=== PATIENT | female | born 1940 | race African-American/Black ===

== ENCOUNTER 2024-08-07 09:15 | Inpatient (IN) | payer OTHER, MEDICARE ==
[~2024-08-07] VITALS: Ht 198.1 cm; Wt 67.1 kg
[2024-08-07] MEDS ORDERED: MORPHINE SULFATE 4 MG/ML INJ (FOR IV/IM USE) IV ONE (10:00)
[2024-08-07] MEDS: SODIUM CHLORIDE 0.9% 1000ML BAG (SEPSIS BOLUS) IV ONE (10:07)
[2024-08-07] MEDS: VANCOMYCIN 1G PREMIX 200 ML IV ONE (10:11)
[2024-08-07] MEDS: PIPERACILLIN/TAZO 3.375G/50ML 50 ML IV ONE (10:11)
[2024-08-07 10:32] LABS: BASOPHILS % 0.1 % (0.0-2.0); HEMATOCRIT. 31.2 % (36.0-48.0); HEMOGLOBIN. 9.9 g/dL (12.0-16.0); LYMPHOCYTES % 9.8 % (20.0-50.0); MEAN CORPUSCULAR HEMOGLOBIN 29.6 pg (28.0-32.0); MEAN CORPUSCULAR HGB CONC 31.8 g/dL (31.0-37.0); MEAN CORPUSCULAR VOLUME 93.3 fL (81.0-99.0); MEAN PLATELET VOLUME 8.2 fl (7.4-10.4); MONOCYTES % 1.2 % (2.0-8.0); NEUTROPHILS % 88.9 % (40.0-76.0); PLATELET 157 x1000/uL (130-400); RED BLOOD CELL COUNT 3.34 mill/uL (4.2-5.4); RED CELL DISTRIBUTION WIDTH 16.3 % (11.6-14.6); WHITE BLOOD COUNT 6.2 x1000/uL (4.5-11.0)
[2024-08-07 10:50] LABS: LACTIC ACID 2.5 mmol/L (0.4-2.0)
[2024-08-07] MEDS: MORPHINE SULFATE 4 MG/ML INJ (FOR IV/IM USE) IV NR (11:40)
[2024-08-07 12:46] LABS: CHLORIDE 105 mEq/L (98-107); POTASSIUM 4.4 mEq/L (3.5-5.1); SODIUM 139 mEq/L (136-145)
[2024-08-07 12:47] LABS: CALCIUM 9.2 mg/dL (8.7-10.4); CARBON DIOXIDE 21 mEq/L (21-32)
[2024-08-07 12:52] LABS: CREATININE 0.8 mg/dL (0.6-1.0); GLUCOSE 133 mg/dL (70-105); UREA NITROGEN BLOOD 13 mg/dL (9-23)
[2024-08-07 12:53] LABS: TROPONIN I HIGH SENSITIVITY 6 ng/L (3.0-34)
[2024-08-07] MEDS ORDERED: ACETAMINOPHEN 325MG TABLET PO PRN ×2 (13:30)
[2024-08-07] MEDS ORDERED: CLONIDINE 0.1MG TABLET PO PRN (13:30)
[2024-08-07] MEDS ORDERED: IPRATROPIUM/ALBUTEROL 0.5-3(2.5)MG/3ML NEB NEB PRN (13:30)
[2024-08-07] MEDS ORDERED: KETOROLAC 15MG/ML VIAL IV PRN (13:30)
[2024-08-07] MEDS ORDERED: ENOXAPARIN 40MG/0.4ML SYR SUBCUT SCH (13:30)
[2024-08-07] MEDS ORDERED: GUAIFENESIN 200MG/10ML SUGAR FREE UDC PO PRN (13:30)
[2024-08-07] MEDS ORDERED: MAGNESIUM/ALUMINUM HYDROXIDE/SIMETHICONE 30ML UDC PO PRN (13:30)
[2024-08-07] MEDS ORDERED: NITROGLYCERIN 0.4MG TABLET SL SL PRN (13:30)
[2024-08-07] MEDS ORDERED: ONDANSETRON HCL 4MG/2ML INJ IV PRN (13:30)
[2024-08-07] MEDS: LACTATED RINGERS 1,000 ML IV SCH (14:30)
[2024-08-07 15:39] LABS: CLARITY URINE CLEAR (CLEAR); COLOR URINE YELLOW (YELLOW); PROTEIN URINE 1+ (NEGATIVE); SPECIFIC GRAVITY URINE 1.015 (1.005-1.030)
[2024-08-07 15:40] LABS: GLUCOSE URINE NEGATIVE (NEGATIVE); KETONES URINE NEGATIVE (NEGATIVE); LEUKOCYTE ESTERASE URINE TRACE (NEGATIVE); NITRITE URINE POSITIVE (NEGATIVE); OCCULT BLOOD URINE 2+ (NEGATIVE); UROBILINOGEN URINE 0.2 E.U./dL (0.2-1.0)
[2024-08-07 16:08] LABS: *AMPHETAMINES SCREEN URINE NEGATIVE (NEGATIVE); *BARBITURATES SCREEN URINE NEGATIVE (NEGATIVE); *BENZODIAZEPINES SCREEN URINE NEGATIVE (NEGATIVE)
[2024-08-07 16:09] LABS: *COCAINE SCREEN URINE NEGATIVE (NEGATIVE); METHADONE URINE SCREEN NEGATIVE (NEGATIVE); OPIATES URINE SCREEN PRESUMPTIVE POSITIVE (NEGATIVE)
[2024-08-07 16:10] LABS: CANNABINOID URINE SCREEN NEGATIVE (NEGATIVE); ECSTASY MDMA SCREEN URINE NEGATIVE (NEGATIVE); PHENCYCLIDINE URINE SCREEN NEGATIVE (NEGATIVE)
[2024-08-07] MEDS: ZINC SULFATE 220 MG ( 50 ) CAPSULE PO SCH (16:15)
[2024-08-07] MEDS: PANTOPRAZOLE SODIUM 40 MG/VIAL IV SCH (16:15)
[2024-08-07] MEDS: DOCUSATE SODIUM 100MG CAPSULE PO PRN (16:16)
[2024-08-07] MEDS: ENOXAPARIN 30MG/0.3ML SYR SUBCUT SCH (16:18)
[2024-08-07 16:40] LABS: BACTERIA URINE 1+; SQUAMOUS EPITHELIAL CELL URINE RARE /lpf (RARE/1+)
[2024-08-07] MEDS: MEROPENEM 1,000 MG in SODIUM CHLORIDE 0.9% 100 ML IV SCH (17:52)
[2024-08-07] MEDS ORDERED: ZOLPIDEM TARTRATE 5MG TABLET PO PRN (21:00)
[2024-08-07 21:30] VITALS: BP 131/81; PULSE 103; RESP 20; TEMP 37.33632; TEMP 37.3632; O2SAT 97
[2024-08-07 22:29] LABS: INR 1.1; PROTHROMBIN TIME 12.6 sec (9.6-11.0)
[2024-08-07 22:33] LABS: IRON 143 ug/dL (50-170)
[2024-08-07 22:34] LABS: CREATINE KINASE MB FRACTION < 0.5 ng/mL (0.5-3.6); TRIGLYCERIDE 155 mg/dL (0-150)
[2024-08-07 22:35] LABS: LDL CHOLESTEROL 126 mg/dL (5-100); TROPONIN I HIGH SENSITIVITY 13 ng/L (3.0-34)
[2024-08-07 22:36] LABS: CHOLESTEROL 199 mg/dL (<200); CREATINE KINASE 59 IU/L (34-145); HDL CHOLESTEROL 45 mg/dL (>65); TOTAL IRON BINDING CAPACITY 237 ug/dl (250-425)
[2024-08-07 22:38] LABS: T4 FREE 1.22 ng/dL (0.89-1.76)
[2024-08-07 22:39] LABS: THYROID STIMULATING HORMONE 0.31 uIU/mL (0.55-4.78)
[2024-08-08] MEDS: ASCORBIC ACID 500 MG TABLET PO SCH (00:08)
[2024-08-08 06:04] LABS: CHLORIDE 103 mEq/L (98-107); POTASSIUM 3.1 mEq/L (3.5-5.1); SODIUM 138 mEq/L (136-145)
[2024-08-08 06:07] LABS: CALCIUM 8.8 mg/dL (8.7-10.4); CARBON DIOXIDE 26 mEq/L (21-32)
[2024-08-08 06:12] LABS: CREATININE 0.7 mg/dL (0.6-1.0); GLUCOSE 117 mg/dL (70-105); UREA NITROGEN BLOOD 11 mg/dL (9-23)
[2024-08-08 06:14] LABS: ALANINE AMINOTRANSFERASE 29 IU/L (10-49); ALBUMIN 3.6 g/dL (3.2-4.8); ASPARTATE AMINOTRANSFERASE 39 IU/L (<34); BILIRUBIN TOTAL 1.4 mg/dL (0.1-1.0); PHOSPHORUS 2.5 mg/dL (2.5-4.9); PROTEIN TOTAL 6.7 g/dL (6.0-8.3)
[2024-08-08 06:26] LABS: FOLIC ACID (FOLATE) SERUM 17.82 ng/mL (>5.38)
[2024-08-08 06:27] LABS: VITAMIN B12 SERUM 454 pg/mL (211-911)
[2024-08-08 08:00] VITALS: BP 113/57; PULSE 90; RESP 18; TEMP 36.89184; O2SAT 99
[2024-08-08 11:17] LABS: BASOPHILS % 0.4 % (0.0-2.0); EOSINOPHILS % 0.1 % (0.0-5.0); HEMATOCRIT. 26.8 % (36.0-48.0); LYMPHOCYTES % 19.5 % (20.0-50.0); MEAN CORPUSCULAR HGB CONC 33.6 g/dL (31.0-37.0); MEAN PLATELET VOLUME 8.6 fl (7.4-10.4); MONOCYTES % 2.1 % (2.0-8.0); NEUTROPHILS % 77.9 % (40.0-76.0); PLATELET 100 x1000/uL (130-400); RED CELL DISTRIBUTION WIDTH 15.8 % (11.6-14.6); WHITE BLOOD COUNT 3.6 x1000/uL (4.5-11.0)
[2024-08-08 11:21] LABS: MEAN CORPUSCULAR VOLUME 89.3 fL (81.0-99.0)
[2024-08-08 12:00] VITALS: BP 101/56; PULSE 93; RESP 17; TEMP 36.61404; O2SAT 99
[2024-08-08] MEDS ORDERED: POTASSIUM CHLORIDE 20MEQ/PACKET PO NR (13:15)
[2024-08-08] MEDS ORDERED: POTASSIUM CHLORIDE 40 MEQ in DEXT 5% WATER 230 ML IV ONE (14:15)
[2024-08-08] MEDS: KCL 20MEQ/100ML X 2 FOR TOTAL KCL 40MEQ/200ML IV SCH (15:25)
[2024-08-08 16:00] VITALS: BP 111/61; PULSE 95; RESP 17; TEMP 36.72516; O2SAT 98
[2024-08-08 18:01] VITALS: BP 111/61; PULSE 95; TEMP 98.1; O2SAT 98
[2024-08-08] MEDS ORDERED: MEROPENEM 1,000 MG in SODIUM CHLORIDE 0.9% 100 ML IV SCH (22:00)
== END 2024-08-08 21:26 | disposition short-term general hospital (02) | DRG 871 ==
LOC: ER 09:15 → EDBEDREQSVC 10:53 → EDBEDREQ 12:47 → 8WST 21:18
PROVIDERS: ADMIT Internal Medicine; ATTEND Internal Medicine
DX: A41.9 Sepsis, unspecified organism (principal); G92.8 Other toxic encephalopathy; N39.0 Urinary tract infection, site not specified; R65.20 Severe sepsis without septic shock; D63.8 Anemia in other chronic diseases classified elsewhere
CPT/HCPCS: 36415; 71045; 80048; 80053; 80061; 80305; 81003; 82550; 82553; 82607; 82746; 83036; 83540; 83550; 83605; 83735; 84100; 84145; 84439; 84443; 84484; 85025; 93005; 99291; J1650; J2185; J2270; J2470; J2543; J3370; J3480; J7030; J7050

== ENCOUNTER 2024-09-03 12:36 | Emergency (ER) | payer MEDICARE, OTHER ==
[~2024-09-03] VITALS: Ht 162.6 cm; Wt 60.0 kg
[2024-09-03 12:41] VITALS: O2SAT 99
[2024-09-03 13:25] LABS: CHLORIDE 103 mEq/L (98-107); POTASSIUM 3.3 mEq/L (3.5-5.1); SODIUM 140 mEq/L (136-145)
[2024-09-03 13:26] LABS: CARBON DIOXIDE 27 mEq/L (21-32)
[2024-09-03 13:27] LABS: CALCIUM 9.5 mg/dL (8.7-10.4)
[2024-09-03] MEDS: SODIUM CHLORIDE 0.9% 1,000 ML IV ONE (13:27)
[2024-09-03 13:31] LABS: CREATININE 0.8 mg/dL (0.6-1.0); GLUCOSE 126 mg/dL (70-105)
[2024-09-03 13:32] LABS: UREA NITROGEN BLOOD 9 mg/dL (9-23)
[2024-09-03 13:33] LABS: ALANINE AMINOTRANSFERASE 17 IU/L (10-49); ALBUMIN 3.8 g/dL (3.2-4.8); ASPARTATE AMINOTRANSFERASE 25 IU/L (<34); BILIRUBIN DIRECT 0.3 mg/dL (<=3.0); BILIRUBIN TOTAL 0.7 mg/dL (0.1-1.0); PROTEIN TOTAL 6.5 g/dL (6.0-8.3); TROPONIN I HIGH SENSITIVITY 7 ng/L (3.0-34)
[2024-09-03 13:37] LABS: HEMATOCRIT. 23.3 % (36.0-48.0); HEMOGLOBIN. 7.8 g/dL (12.0-16.0); MEAN CORPUSCULAR HEMOGLOBIN 30.4 pg (28.0-32.0); MEAN CORPUSCULAR HGB CONC 33.6 g/dL (31.0-37.0); MEAN CORPUSCULAR VOLUME 90.4 fL (81.0-99.0); MEAN PLATELET VOLUME 9.9 fl (7.4-10.4); PLATELET 155 x1000/uL (130-400); RED BLOOD CELL COUNT 2.57 mill/uL (4.2-5.4); RED CELL DISTRIBUTION WIDTH 17.3 % (11.6-14.6); WHITE BLOOD COUNT 6.3 x1000/uL (4.5-11.0)
[2024-09-03 13:50] LABS: DIFFERENTIAL COMMENT 1
[2024-09-03] MEDS: MAGNESIUM OXIDE 400MG TABLET PO STA (14:25)
[2024-09-03 14:30] LABS: ANISOCYTOSIS 1+; NUCLEATED RED BLOOD CELLS 1 /100 WBC
[2024-09-03 14:31] LABS: PLATELET ESTIMATE NORMAL
[2024-09-03] MEDS: POTASSIUM CHLORIDE 20MEQ/PACKET PO ONE (14:56)
[2024-09-03 15:46] LABS: INR 1.2; PARTIAL THROMBOPLASTIN TIME 24.4 sec (23.4-31.0); PROTHROMBIN TIME 13.5 sec (9.6-11.0)
[2024-09-03] MEDS: MAGNESIUM 2 G PREMIX 50 ML IV ONE (16:00)
[2024-09-03 18:33] VITALS: BP 110/67; PULSE 90; RESP 18; TEMP 36.39180; O2SAT 97
== END 2024-09-03 19:19 | disposition short-term general hospital (02) ==
LOC: ER 12:36 → CANBEDREQ 16:34 → ER 19:19
DX: R55 Syncope and collapse (principal); E87.6 Hypokalemia; I10 Essential (primary) hypertension; E83.42 Hypomagnesemia; Z85.9 Personal history of malignant neoplasm, unspecified
CPT/HCPCS: 99285; 93970; 96365; 96361; 96366; 71045; 80076; 80048; 83880; 83735; 85025; 85610; 85730; 84484; 36415; 93005; J3475; J7030

== ENCOUNTER 2024-11-23 06:34 | Emergency (ER) | payer OTHER ==
[~2024-11-23] VITALS: Ht 157.5 cm; Wt 60.0 kg
[2024-11-23 06:36] VITALS: O2SAT 100
[2024-11-23 08:32] LABS: BASOPHILS % 0.5 % (0.0-2.0); EOSINOPHILS % 0.4 % (0.0-5.0); HEMATOCRIT. 28.8 % (36.0-48.0); HEMOGLOBIN. 8.8 g/dL (12.0-16.0); LYMPHOCYTES % 29.9 % (20.0-50.0); MEAN CORPUSCULAR HEMOGLOBIN 30.2 pg (28.0-32.0); MEAN CORPUSCULAR HGB CONC 30.4 g/dL (31.0-37.0); MEAN CORPUSCULAR VOLUME 99.2 fL (81.0-99.0); MEAN PLATELET VOLUME 8.2 fl (7.4-10.4); MONOCYTES % 12.3 % (2.0-8.0); NEUTROPHILS % 56.9 % (40.0-76.0); PLATELET 214 x1000/uL (130-400); RED CELL DISTRIBUTION WIDTH 17.8 % (11.6-14.6); WHITE BLOOD COUNT 4.3 x1000/uL (4.5-11.0)
[2024-11-23 08:40] LABS: CHLORIDE 108 mEq/L (98-107); POTASSIUM 4.1 mEq/L (3.5-5.1); SODIUM 141 mEq/L (136-145)
[2024-11-23 08:41] LABS: CALCIUM 9.6 mg/dL (8.7-10.4); CARBON DIOXIDE 25 mEq/L (21-32)
[2024-11-23 08:46] LABS: CREATININE 1.2 mg/dL (0.6-1.0); GLUCOSE 91 mg/dL (70-105); UREA NITROGEN BLOOD 24 mg/dL (9-23)
[2024-11-23 08:47] LABS: TROPONIN I HIGH SENSITIVITY 18 ng/L (3.0-34)
[2024-11-23] MEDS ORDERED: CLONIDINE 0.1MG TABLET PO PRN (11:30)
[2024-11-23] MEDS ORDERED: PANTOPRAZOLE SODIUM 40 MG/VIAL IV SCH (11:30)
[2024-11-23] MEDS ORDERED: ONDANSETRON HCL 4MG/2ML INJ IV PRN (11:30)
[2024-11-23] MEDS ORDERED: IPRATROPIUM/ALBUTEROL 0.5-3(2.5)MG/3ML NEB NEB PRN (11:30)
[2024-11-23] MEDS ORDERED: ACETAMINOPHEN 325MG TABLET PO PRN (11:30)
[2024-11-23] MEDS ORDERED: SODIUM CHLORIDE 0.9% 1,000 ML IV SCH (11:36)
[2024-11-23] MEDS ORDERED: ENOXAPARIN 30MG/0.3ML SYR SUBCUT SCH (11:39)
[2024-11-23 11:52] VITALS: BP 110/59; PULSE 85; RESP 16; TEMP 37.05852; O2SAT 100
[2024-11-23] MEDS: MORPHINE SULFATE 2 MG/ML INJ (NOT FOR IM USE) IV ONE (13:06)
[2024-11-23] MEDS ORDERED: ZOLPIDEM TARTRATE 5MG TABLET PO PRN (21:00)
== END 2024-11-23 13:33 | disposition short-term general hospital (02) ==
LOC: ER 06:34
DX: R07.89 Other chest pain (principal); I10 Essential (primary) hypertension; Z85.9 Personal history of malignant neoplasm, unspecified; Z79.899 Other long term (current) drug therapy
CPT/HCPCS: 36415; 71045; 80048; 83880; 84484; 85025; 93005; 99285

== ENCOUNTER 2025-02-06 12:14 | Emergency (ER) | payer OTHER ==
[~2025-02-06] VITALS: Ht 162.6 cm; Wt 46.0 kg
[2025-02-06 12:16] VITALS: O2SAT 99
[2025-02-06 12:38] VITALS: TEMP 36.9
[2025-02-06 13:15] LABS: BASOPHILS % 0.3 % (0.0-2.0); DIFFERENTIAL COMMENT 0; EOSINOPHILS % 0.4 % (0.0-5.0); HEMATOCRIT. 34.2 % (36.0-48.0); HEMOGLOBIN. 10.3 g/dL (12.0-16.0); LYMPHOCYTES % 40.8 % (20.0-50.0); MEAN CORPUSCULAR HEMOGLOBIN 29.9 pg (28.0-32.0); MEAN CORPUSCULAR HGB CONC 30.1 g/dL (31.0-37.0); MEAN PLATELET VOLUME 7.7 fl (7.4-10.4); MONOCYTES % 9.9 % (2.0-8.0); NEUTROPHILS % 48.6 % (40.0-76.0); PLATELET 311 x1000/uL (130-400); RED BLOOD CELL COUNT 3.45 mill/uL (4.2-5.4); RED CELL DISTRIBUTION WIDTH 19.3 % (11.6-14.6); WHITE BLOOD COUNT 4.8 x1000/uL (4.5-11.0)
[2025-02-06 13:38] LABS: CHLORIDE 97 mEq/L (98-107); POTASSIUM 4.7 mEq/L (3.5-5.1); SODIUM 135 mEq/L (136-145)
[2025-02-06 13:39] LABS: CALCIUM 10.8 mg/dL (8.7-10.4); CARBON DIOXIDE 22 mEq/L (21-32)
[2025-02-06 13:43] LABS: TROPONIN I HIGH SENSITIVITY 7 ng/L (3.0-34)
[2025-02-06 13:44] LABS: CREATININE 1.1 mg/dL (0.6-1.0); GLUCOSE 69 mg/dL (70-105); UREA NITROGEN BLOOD 14 mg/dL (9-23)
[2025-02-06 13:46] LABS: ALANINE AMINOTRANSFERASE < 7 IU/L (10-49); ALBUMIN 3.6 g/dL (3.2-4.8); ASPARTATE AMINOTRANSFERASE 18 IU/L (<34); BILIRUBIN DIRECT 0.2 mg/dL (<=3.0)
[2025-02-06 13:47] LABS: BILIRUBIN TOTAL 0.6 mg/dL (0.1-1.0); PROTEIN TOTAL 7.2 g/dL (6.0-8.3)
[2025-02-06 14:38] LABS: INFLUENZA TYPE A Presumptive Negative (Pres. Neg.)
[2025-02-06 14:39] LABS: INFLUENZA TYPE B Presumptive Negative (Pres. Neg.)
[2025-02-06 15:55] LABS: TROPONIN I HIGH SENSITIVITY 6 ng/L (3.0-34)
[2025-02-06] MEDS: DEXTROSE 50% WATER 50ML SYRINGE IV ONE (17:14)
[2025-02-06 18:20] VITALS: BP 109/71; PULSE 95; RESP 22; O2SAT 98
== END 2025-02-06 18:28 | disposition admitted as inpatient to this hospital (09) ==
LOC: ER 12:14 → EDBEDREQ 12:32 → CANBEDREQ 16:06 → ER 18:28
DX: N17.9 Acute kidney failure, unspecified (principal); E16.2 Hypoglycemia, unspecified; I10 Essential (primary) hypertension; R51.9 Headache, unspecified; Z98.890 Other specified postprocedural states; Z20.822 Contact with and (suspected) exposure to COVID-19
CPT/HCPCS: 36415; 71045; 80048; 80076; 82962; 84484; 85025; 87426; 87804; 93005; 96374; 99285

== ENCOUNTER 2025-04-16 13:23 | Emergency (ER) | payer OTHER ==
[~2025-04-16] VITALS: Ht 162.6 cm; Wt 50.0 kg
[2025-04-16 13:26] VITALS: O2SAT 100
[2025-04-16 14:29] LABS: BASOPHILS % 0.4 % (0.0-2.0); EOSINOPHILS % 0.9 % (0.0-5.0); HEMATOCRIT. 25.7 % (36.0-48.0); HEMOGLOBIN. 8.2 g/dL (12.0-16.0); LYMPHOCYTES % 39.7 % (20.0-50.0); MEAN CORPUSCULAR HEMOGLOBIN 30.9 pg (28.0-32.0); MEAN CORPUSCULAR VOLUME 96.4 fL (81.0-99.0); MEAN PLATELET VOLUME 7.2 fl (7.4-10.4); MONOCYTES % 9.2 % (2.0-8.0); NEUTROPHILS % 49.8 % (40.0-76.0); PLATELET 402 x1000/uL (130-400); RED BLOOD CELL COUNT 2.66 mill/uL (4.2-5.4); RED CELL DISTRIBUTION WIDTH 20.7 % (11.6-14.6); WHITE BLOOD COUNT 8.1 x1000/uL (4.5-11.0)
[2025-04-16] MEDS: SODIUM CHLORIDE 0.9% (SEPSIS BOLUS) IV ONE (14:30)
[2025-04-16 14:37] LABS: CHLORIDE 102 mEq/L (98-107); SODIUM 135 mEq/L (136-145)
[2025-04-16 14:38] LABS: CALCIUM 9.5 mg/dL (8.7-10.4); CARBON DIOXIDE 28 mEq/L (21-32)
[2025-04-16 14:39] LABS: INR 1.1; PROTHROMBIN TIME 11.7 sec (9.6-11.0)
[2025-04-16 14:43] LABS: CREATININE 0.7 mg/dL (0.6-1.0); GLUCOSE 95 mg/dL (70-105); UREA NITROGEN BLOOD 29 mg/dL (9-23)
[2025-04-16 14:45] LABS: ALANINE AMINOTRANSFERASE 12 IU/L (10-49); ALBUMIN 2.7 g/dL (3.2-4.8); ASPARTATE AMINOTRANSFERASE 15 IU/L (<34); BILIRUBIN DIRECT < 0.1 mg/dL (<=3.0); TROPONIN I HIGH SENSITIVITY < 4 ng/L (3.0-34)
[2025-04-16 14:46] LABS: BILIRUBIN TOTAL 0.2 mg/dL (0.1-1.0); PROTEIN TOTAL 8.3 g/dL (6.0-8.3)
[2025-04-16 16:31] VITALS: TEMP 36.8
[2025-04-16 19:30] VITALS: BP 97/57; PULSE 86; RESP 24; O2SAT 95
[2025-04-16] MEDS ORDERED: MAGNESIUM/ALUMINUM HYDROXIDE/SIMETHICONE 30ML UDC PO PRN (19:30)
[2025-04-16] MEDS ORDERED: SODIUM CHLORIDE 0.9% 1,000 ML IV SCH (19:30)
[2025-04-16] MEDS ORDERED: HYDROCODONE/ACETAMINOPHEN 5/325MG TABLET PO PRN (19:30)
[2025-04-16] MEDS ORDERED: ONDANSETRON HCL 4MG/2ML INJ IV PRN (19:30)
[2025-04-16] MEDS ORDERED: IPRATROPIUM/ALBUTEROL 0.5-3(2.5)MG/3ML NEB NEB PRN (19:30)
[2025-04-16] MEDS ORDERED: CLONIDINE 0.1MG TABLET PO PRN (19:30)
[2025-04-16] MEDS ORDERED: CEFTRIAXONE 1GM/50ML 50 ML IV SCH (20:00)
[2025-04-16] MEDS ORDERED: ENOXAPARIN 40MG/0.4ML SYR SUBCUT SCH (21:00)
[2025-04-17] MEDS ORDERED: PANTOPRAZOLE SODIUM 40 MG/VIAL IV SCH (09:00)
== END 2025-04-16 20:33 | disposition short-term general hospital (02) ==
LOC: ER 13:23 → CANBEDREQ 17:28 → ER 20:33
DX: A41.9 Sepsis, unspecified organism (principal); R65.20 Severe sepsis without septic shock; R62.7 Adult failure to thrive; I10 Essential (primary) hypertension; Z79.899 Other long term (current) drug therapy; Z85.43 Personal history of malignant neoplasm of ovary
CPT/HCPCS: 99291; 96360; 96361; 80076; 80048; 83605; 83735; 85025; 85610; 86850; 86900; 86901; 87040; 84484; 36415; 84145; 71045; 93005; J7030

== ENCOUNTER 2025-04-18 15:23 | Emergency (ER) | payer OTHER ==
[~2025-04-18] VITALS: Ht 162.6 cm; Wt 54.0 kg
[2025-04-18 15:27] VITALS: O2SAT 98
[2025-04-18] MEDS: SODIUM CHLORIDE 0.9% (SEPSIS BOLUS) IV ONE (16:26)
[2025-04-18] MEDS: PIPERACILLIN/TAZO 3.375G/50ML 50 ML IV ONE (16:26)
[2025-04-18 16:51] LABS: BASOPHILS % 0.3 % (0.0-2.0); EOSINOPHILS % 0.6 % (0.0-5.0); HEMATOCRIT. 29.1 % (36.0-48.0); HEMOGLOBIN. 9.2 g/dL (12.0-16.0); LYMPHOCYTES % 22.9 % (20.0-50.0); MEAN CORPUSCULAR HEMOGLOBIN 30.5 pg (28.0-32.0); MEAN CORPUSCULAR HGB CONC 31.7 g/dL (31.0-37.0); MEAN CORPUSCULAR VOLUME 96.2 fL (81.0-99.0); MEAN PLATELET VOLUME 7.1 fl (7.4-10.4); MONOCYTES % 9.5 % (2.0-8.0); NEUTROPHILS % 66.7 % (40.0-76.0); PLATELET 412 x1000/uL (130-400); RED BLOOD CELL COUNT 3.02 mill/uL (4.2-5.4); RED CELL DISTRIBUTION WIDTH 20.5 % (11.6-14.6); WHITE BLOOD COUNT 6.4 x1000/uL (4.5-11.0)
[2025-04-18 17:01] LABS: CHLORIDE 102 mEq/L (98-107); POTASSIUM 4.1 mEq/L (3.5-5.1); SODIUM 137 mEq/L (136-145)
[2025-04-18 17:02] LABS: CALCIUM 9.4 mg/dL (8.7-10.4); CARBON DIOXIDE 26 mEq/L (21-32)
[2025-04-18 17:07] LABS: CREATININE 0.6 mg/dL (0.6-1.0); GLUCOSE 101 mg/dL (70-105)
[2025-04-18 17:08] LABS: TROPONIN I HIGH SENSITIVITY 5 ng/L (3.0-34); UREA NITROGEN BLOOD 18 mg/dL (9-23)
[2025-04-18 17:09] LABS: ALANINE AMINOTRANSFERASE 12 IU/L (10-49); ALBUMIN 2.8 g/dL (3.2-4.8); ASPARTATE AMINOTRANSFERASE 11 IU/L (<34); CREATINE KINASE 16 IU/L (34-145); LACTATE DEHYDROGENASE 129 IU/L (120-246)
[2025-04-18 17:10] LABS: BILIRUBIN DIRECT < 0.1 mg/dL (<=3.0); BILIRUBIN TOTAL 0.2 mg/dL (0.1-1.0); PROTEIN TOTAL 8.6 g/dL (6.0-8.3)
[2025-04-18 17:20] LABS: INR 1.1; PROTHROMBIN TIME 11.9 sec (9.6-11.0)
[2025-04-18] MEDS: VANCOMYCIN 1G PREMIX 200 ML IV ONE (17:27)
[2025-04-18 20:58] VITALS: BP 117/75; PULSE 99; RESP 19; TEMP 36.5; O2SAT 96
== END 2025-04-18 21:16 | disposition short-term general hospital (02) ==
LOC: ER 15:23 → EDBEDREQSVC 17:37 → ER 21:16
DX: A41.9 Sepsis, unspecified organism (principal); R65.20 Severe sepsis without septic shock; L98.418 Non-pressure chronic ulcer of buttock with other specified severity; D64.9 Anemia, unspecified; E11.9 Type 2 diabetes mellitus without complications; Z86.73 Personal history of transient ischemic attack (TIA), and cerebral infarction without residual deficits
CPT/HCPCS: 99291; 74176; 96374; 96375; 80076; 80048; 82550; 83605; 83615; 85025; 85384; 85610; 86850; 86900; 86901; 87040; 84484; 36415; 84145; 71045; 93005; J2543; J3370; J7030